=== PATIENT | female | born 1995 | race Caucasian/White ===

== ENCOUNTER 2019-09-03 16:37 | Emergency (ER) | payer BC ==
[~2019-09-03] VITALS: Ht 165.1 cm; Wt 85.9 kg
[2019-09-03 16:48] VITALS: BP 126/80
[2019-09-03] MEDS ORDERED: CLIN300C70 PO (17:16)
[2019-09-03] MEDS ORDERED: PRED20TA PO (17:16)
== END 2019-09-03 17:51 | disposition home or self-care (01) ==
LOC: ER 16:39
DX: L03.211 Cellulitis of face (principal); Z79.899 Other long term (current) drug therapy
CPT/HCPCS: 99283